=== PATIENT | female | born 1945 | race Caucasian/White ===

== ENCOUNTER 2021-06-21 10:44 | Outpatient (CLI) | payer MEDICARE, OTHER ==
--- NOTE | 2021-06-29 08:02 | Mammography Report ---
UNILATERAL RIGHT DIGITAL SCREENING MAMMOGRAM 3D/2D: 06/21/2021 CLINICAL: Routine screening. Routine screening. Personal history of left breast cancer. Comparison is made to exams dated: 01/07/2019 mammogram, 01/01/2018 mammogram, 12/18/2016 mammogram, 12/12 mammogram, and 12/07/2015 mammogram - [facility]. The tissue of right breas t is predominantly fatty. No significant masses, calcifications, or other findings are seen in the breast. There has been no significant interval change. IMPRESSION: NEGATIVE There is no mammographic evidence of malignancy. A 1 year screening mammogram is recommended. This exam was interpreted at Station ID: [id number]. NOTE: For mammograms, a report in lay terms will be sent to the patient. Approximately 15% of breast malignancies will not be visualized mammographically. In the management of a palpable breast mass, a negative mammogram must not discourage biopsy of a clinically suspicious lesion. Electronically Signed By: Nick Payne acr/penrad:06/28/2021 08:47:09 ACR BI-RADS Category 1: Negative 3341F PARENCHYMAL PATTERN: (F) - The breast(s) demonstrate(s) diffuse fatty replacement. BI-RADS CATEGORY: (1) - 1 RECOMMENDATION: (ANNUAL) - Recommend routine annual screening mammography. [id number] 1 year screening LATERALITY: (B)
== END 2021-06-21 10:45 | disposition home or self-care (01) ==
LOC: DI.S 10:44
DX: Z12.31 Encounter for screening mammogram for malignant neoplasm of breast (principal); Z85.3 Personal history of malignant neoplasm of breast

== ENCOUNTER 2022-07-10 07:00 | Outpatient (CLI) | payer MEDICARE, OTHER ==
--- NOTE | 2022-07-12 12:28 | Mammography Report ---
UNILATERAL RIGHT DIGITAL SCREENING MAMMOGRAM 3D/2D: 07/10/2022 CLINICAL: Routine screening. Personal history of left breast cancer. Family history of breast cancer. Comparison is made to exams dated: 06/21/2021 mammogram - [facility], 01/07/2019 mamm ogram, and 01/01/2018 mammogram - [facility]. There are scattered areas of fibroglandular density in the right breast (category b / 25%-50% glandul ar tissue). No significant masses, calcifications, or other findings are seen in the breast. There has been no significant interval change. IMPRESSION: NEGATIVE There is no mammographic evidence of malignancy. A 1 year screening mammogram is recommended. This exam was interpreted at Station ID: [id number]. NOTE: For mammograms, a report in lay terms will be sent to the patient. Approximately 15% of breast malignancies will not be visualized mammographically. In the management of a palpable breast mass, a negative mammogram must not discourage biopsy of a clinically suspicious lesion. Electronically Signed By: Tian lemus/vega:07/11/2022 11:06:38 letter sent: No_Letter ACR BI-RADS Category 1: Negative 3341F PARENCHYMAL PATTERN: (A) - The breast(s) demonstrate(s) scattered fibroglandular densities. BI-RADS CATEGORY: (1) - 1 RECOMMENDATION: (ANNUAL) - Recommend routine annual screening mammography. [id number] 1 year screening LATERALITY: (B)
== END 2022-07-10 23:59 | disposition home or self-care (01) ==
LOC: DI.S 07:00
DX: Z12.31 Encounter for screening mammogram for malignant neoplasm of breast (principal); Z85.3 Personal history of malignant neoplasm of breast; Z80.3 Family history of malignant neoplasm of breast

== ENCOUNTER 2022-11-02 08:41 | Outpatient (CLI) | payer MEDICARE, OTHER ==
--- NOTE | 2022-11-02 12:58 | XRAY Report ---
PROCEDURE: Chest 2 View X-Ray INDICATIONS: COUGH TECHNIQUE: 2 views of the chest were acquired. COMPARISON: None. FINDINGS: Surgical changes and devices: Surgical clips projecting over the left breast and left axilla. Lungs and pleura: Slight coarsening of the interstitial markings without curly B lines, consolidatio ns, or pleural effusions. Mediastinum: Mediastinal contours appear normal. Heart size is normal. Bones and chest wall: Moderate thoracolumbar scoliosis. No visible fractures or suspicious soft tiss ue lesions. IMPRESSION: 1. Diffusely coarse interstitial markings suggestive of senescent changes, fibrosis, or emphysema. Reviewed by: Amber Bryan MD on 11/02/2022 12:56 PM PDT Approved by: Amber Bryan MD on 11/02/2022 12:56 PM PDT Station ID: [id number]
[2022-11-02 14:43] LABS: BASOPHILS # (AUTO) 0.1 10^3/uL (0.0-0.1); BASOPHILS % (AUTO) 1.7 %; EOSINOPHILS # (AUTO) 0.1 10^3/uL (0.0-0.7); EOSINOPHILS % (AUTO) 2.2 %; HCT - HEMATOCRIT 45.8 % (37.0-47.0); HGB - HEMOGLOBIN 14.2 g/dL (12.0-16.0); LYMPHOCYTES # (AUTO) 1.6 10^3/uL (1.5-3.5); LYMPHOCYTES % (AUTO) 27.5 %; MEAN CORPUSCULAR VOLUME 83.7 fL (81.0-99.0); MEAN PLATELET VOLUME 10.9 fL (7.9-10.8); MONOCYTES # (AUTO) 0.6 10^3/uL (0.0-1.0); MONOCYTES % (AUTO) 9.3 %; NEUTROPHILS # (AUTO) 3.5 10^3/uL (1.5-6.6); NEUTROPHILS % (AUTO) 59.1 %; PLT - PLATELET COUNT 340 10^3/uL (130-450); RED BLOOD COUNT 5.47 10^6/uL (4.20-5.40); RED CELL DISTRIBUTION WIDTH 14.5 % (12.0-15.0); WHITE BLOOD COUNT 5.9 x10^3/uL (4.8-10.8)
[2022-11-02 15:12] LABS: ALBUMIN 3.7 g/dL (3.2-5.5); ALBUMIN/GLOBULIN RATIO 1.2 (1.0-2.2); ALKALINE PHOSPHATASE 93 IU/L (42-121); ALT ALANINE AMINOTRANSFERASE 22 IU/L (10-60); AST ASPARTATE AMINOTRANSFERASE 20 IU/L (10-42); BILIRUBIN,TOTAL 0.6 mg/dL (0.2-1.0); BUN - BLOOD UREA NITROGEN 21 mg/dL (6-20); CALCIUM 9.4 mg/dL (8.5-10.3); CARBON DIOXIDE - CO2 26 mmol/L (21-32); CHLORIDE 105 mmol/L (101-111); CHOL/HDL RATIO 3.6 (<4.4); CHOLESTEROL 239 mg/dL; CREATININE 0.9 mg/dL (0.4-1.0); GFR - MDRD 61 (>89); GLUCOSE 92 mg/dL (70-100); HDL CHOLESTEROL 67 mg/dL; LDL CHOLESTEROL,CALCULATED 146 mg/dL; LDL/HDL RATIO 2.2 (<4.4); POTASSIUM 4.3 mmol/L (3.5-5.0); SODIUM 138 mmol/L (135-145); TOTAL PROTEIN 6.7 g/dL (6.7-8.2); TRIGLYCERIDES 132 mg/dL; VLDL CHOLESTEROL 26 mg/dL
[2022-11-05 09:07] LABS: HCV RNA QUANTITATION HCV Not Detected IU/mL (.)
== END 2022-11-02 08:42 | disposition home or self-care (01) ==
LOC: DI.S 08:41
PROVIDERS: ATTEND Internal Medicine
DX: R91.8 Other nonspecific abnormal finding of lung field (principal); Z80.0 Family history of malignant neoplasm of digestive organs; C50.919 Malignant neoplasm of unspecified site of unspecified female breast; H91.90 Unspecified hearing loss, unspecified ear; Z87.42 Personal history of other diseases of the female genital tract; Z13.6 Encounter for screening for cardiovascular disorders; Z11.59 Encounter for screening for other viral diseases
CPT/HCPCS: 36415; 80053; 80061; 83721; 84443; 85025; 87522

== ENCOUNTER 2022-11-10 12:03 | Outpatient (CLI) | payer MEDICARE, OTHER ==
[2022-11-10] MEDS ORDERED: iohexoL-300 100 ML VIAL ONE (12:39)
--- NOTE | 2022-11-10 14:59 | CT Report ---
PROCEDURE: CHEST W INDICATIONS: ABN XR CONTRAST: 100ml omni 300 TECHNIQUE: After the administration of intravenous contrast, 1 mm axial images were acquired from the pulmonary apices through the posterior costophrenic angles. Axial 5 mm soft tissue kernel reconstructions were performed as well as 8 mm axial MIP and coronal and sagittal 5 mm reformations. For radiation dose reduction, the following was used: automated exposure control, adjustment of mA and/or kV according to patient size. COMPARISON: Radiograph 11/02/2022 FINDINGS: Image quality: Excellent. Lungs and pleura: No consolidation. Mild biapical scarring. No pleural effusions. No pneumothorax. S cattered solid pulmonary nodules. Largest include: -5 mm solid nodule, right lower lobe (series 4, image 128). -4 mm juxtapleural nodule, left lower lobe (series 4, image 126). Mediastinum: Heart size is normal. No pericardial effusion. No large vessel abnormality. No mediastin al adenopathy by size criteria. Small hiatal hernia. Chest wall and lower neck: Thyroid is unremarkable. No axillary or supraclavicular adenopathy by size . Bones: No aggressive osseous abnormality. Convex right rotoscoliosis of the thoracolumbar spine. Upper Abdomen: Fluid attenuating hepatic cyst. IMPRESSION: No findings of fibrosis or emphysema. A few solid pulmonary nodules, largest measuring 5 mm. Consider 12 month follow-up if this patient is at high risk for developing lung cancer, per Fleischner Society guidelines. Reviewed by: David Oliver on 11/10/2022 2:58 PM PDT Approved by: David Oliver on 11/10/2022 2:58 PM PDT Station ID: [id number]
[2022-11-10] MEDS ORDERED: iohexoL-300 100 ML VIAL IVP ONE (15:54)
== END 2022-11-10 12:04 | disposition home or self-care (01) ==
LOC: DI 12:03
PROVIDERS: ATTEND Internal Medicine
DX: R91.8 Other nonspecific abnormal finding of lung field (principal); Z79.899 Other long term (current) drug therapy
CPT/HCPCS: 71260; Q9967

== ENCOUNTER 2023-11-05 08:31 | Outpatient (CLI) | payer MEDICARE, OTHER ==
[2023-11-05 15:20] LABS: BASOPHILS # (AUTO) 0.1 10^3/uL (0.0-0.1); BASOPHILS % (AUTO) 2.3 %; EOSINOPHILS # (AUTO) 0.2 10^3/uL (0.0-0.7); EOSINOPHILS % (AUTO) 3.9 %; HCT - HEMATOCRIT 43.6 % (37.0-47.0); HGB - HEMOGLOBIN 13.5 g/dL (12.0-16.0); LYMPHOCYTES # (AUTO) 1.7 10^3/uL (1.5-3.5); LYMPHOCYTES % (AUTO) 27.3 %; MEAN CORPUSCULAR HEMOGLOBIN 26.2 pg (27.0-31.0); MEAN CORPUSCULAR VOLUME 84.5 fL (81.0-99.0); MEAN PLATELET VOLUME 10.3 fL (7.9-10.8); MONOCYTES # (AUTO) 0.6 10^3/uL (0.0-1.0); MONOCYTES % (AUTO) 9.6 %; NEUTROPHILS # (AUTO) 3.5 10^3/uL (1.5-6.6); NEUTROPHILS % (AUTO) 56.7 %; PLT - PLATELET COUNT 328 10^3/uL (130-450); RED BLOOD COUNT 5.16 10^6/uL (4.20-5.40); RED CELL DISTRIBUTION WIDTH 14.8 % (12.0-15.0); WHITE BLOOD COUNT 6.2 x10^3/uL (4.8-10.8)
[2023-11-05 15:33] LABS: THYROID STIMULATING HORMONE 2.13 uIU/mL (0.34-5.60)
[2023-11-05 15:35] LABS: ALBUMIN 4.2 g/dL (3.2-5.5); ALBUMIN/GLOBULIN RATIO 1.6 (1.0-2.2); ALKALINE PHOSPHATASE 90 IU/L (42-121); ALT ALANINE AMINOTRANSFERASE 21 IU/L (10-60); AST ASPARTATE AMINOTRANSFERASE 21 IU/L (10-42); BILIRUBIN,TOTAL 0.4 mg/dL (0.2-1.0); BUN - BLOOD UREA NITROGEN 24 mg/dL (6-20); CALCIUM 9.9 mg/dL (8.5-10.3); CARBON DIOXIDE - CO2 30 mmol/L (21-32); CHLORIDE 107 mmol/L (101-111); CHOLESTEROL 256 mg/dL; CREATININE 0.9 mg/dL (0.6-1.3); GFR - MDRD 61 (>89); GLUCOSE 89 mg/dL (74-104); HDL CHOLESTEROL 64 mg/dL; LDL CHOLESTEROL,CALCULATED 151 mg/dL; LDL/HDL RATIO 2.4 (<4.4); POTASSIUM 4.1 mmol/L (3.5-4.5); SODIUM 142 mmol/L (135-145); TOTAL PROTEIN 6.9 g/dL (6.4-8.9); TRIGLYCERIDES 206 mg/dL (48-352); VLDL CHOLESTEROL 41 mg/dL
== END 2023-11-05 08:32 | disposition home or self-care (01) ==
LOC: LAB.S 08:31
PROVIDERS: ATTEND Internal Medicine
DX: Z00.00 Encounter for general adult medical examination without abnormal findings (principal); F41.9 Anxiety disorder, unspecified; F32.A Depression, unspecified; L30.9 Dermatitis, unspecified; Z80.0 Family history of malignant neoplasm of digestive organs; C50.919 Malignant neoplasm of unspecified site of unspecified female breast; Z86.010 Personal history of colon polyps; N30.10 Interstitial cystitis (chronic) without hematuria; Z79.899 Other long term (current) drug therapy; L71.9 Rosacea, unspecified
CPT/HCPCS: 36415; 80053; 80061; 83721; 84443; 85025

== ENCOUNTER 2023-11-23 13:09 | Outpatient (CLI) | payer MEDICARE, OTHER ==
--- NOTE | 2023-11-26 10:37 | Ultrasound Report ---
LIMITED ULTRASOUND OF RIGHT BREAST AND AXILLA: 11/23/2023 CLINICAL: Palpable right breast lump. Comparison is made to exams dated: 07/10/2022 mammogram, 06/21/2021 mammogram - [facility], 01/07/2019 mammogram - [facility], and 11/23/2023 mammogram - [facility]. Color flow ultrasound of the right breast retroareolar and axilla regions was performed. Valdez scale images of the real-time examination were reviewed. There is a 0.9 cm x 0.9 cm x 0.9 cm irregular mass with an indistinct margin in the right breast cent ral to the nipple middle depth. This irregular mass is hypoechoic with an echogenic boundary. This correlates as palpated and with mammography findings. Color flow imaging demonstrates that there is no increase in vascularity. No significant abnormalities were seen sonographically in the right axilla. IMPRESSION: HIGHLY SUGGESTIVE OF MALIGNANCY The 0.9 cm x 0.9 cm x 0.9 cm irregular mass in the right breast is highly suggestive of malignancy. An ultrasound guided biopsy is recommended. Please note that the mass appears larger on mammography than on ultrasound, possibly related to surrounding desmoplastic reaction. Consider pre-treatment MRI to evaluate for extent of disease. No significant abnormalities were seen sonographically in the right axilla. This exam was interpreted at Station ID: [id number]. Electronically Signed By: Yuan Lofton M.D. ar/:11/23/2023 21:34:15 Ultrasound BI-RADS: 5 Highly suggestive of malignancy BI-RADS CATEGORY: (5) - 5 Biopsy [id number] Immediate follow-up LATERALITY: (R)
--- NOTE | 2023-11-26 10:37 | Mammography Report ---
UNILATERAL RIGHT DIGITAL DIAGNOSTIC MAMMOGRAM 3D/2D: 11/23/2023 CLINICAL: Palpable right breast lump by physician. Comparison is made to exams dated: 07/10/2022 mammogram, 06/21/2021 mammogram - [facility], and 01/07/2019 mammogram - [facility]. There are scattered areas of fibroglandular density in the right breast (category b / 25%-50% glandul ar tissue). There is a 2.1 cm irregular high density mass with a spiculated margin in the right breast central to the nipple anterior depth. This correlates as palpated. No other significant masses or calcifications are seen in the breast. IMPRESSION: INCOMPLETE: NEEDS ADDITIONAL IMAGING EVALUATION The 2.1 cm irregular high density mass in the right breast is indeterminate. An ultrasound is recomm ended. This exam was interpreted at Station ID: [id number]. NOTE: For mammograms, a report in lay terms will be sent to the patient. Approximately 15% of breast malignancies will not be visualized mammographically. In the management of a palpable breast mass, a negative mammogram must not discourage biopsy of a clinically suspicious lesion. Electronically Signed By: Yuan Lofton M.D. ar/:11/23/2023 21:31:38 ACR BI-RADS Category 0: Incomplete 3340F PARENCHYMAL PATTERN: (A) - The breast(s) demonstrate(s) scattered fibroglandular densities. BI-RADS CATEGORY: (0) - 0 Ultrasound [id number] Immediate follow-up LATERALITY: (R)
== END 2023-11-23 13:10 | disposition home or self-care (01) ==
LOC: DI 13:09
PROVIDERS: ATTEND Internal Medicine
DX: N63.41 Unspecified lump in right breast, subareolar (principal); R92.321 Mammographic fibroglandular density, right breast

== ENCOUNTER 2023-12-11 09:34 | Outpatient (CLI) | payer MEDICARE, OTHER ==
[~2023-12-11 09:34] MED LIST: LIDOCAINE 1%-EPI 1:100000 20 ML MDV ONE; LIDOCAINE-MPF 1% 5 ML VIAL ONE
[2023-12-11] MEDS: LIDOCAINE-MPF 1% 5 ML VIAL TD ONE (11:12)
[2023-12-11] MEDS: LIDOCAINE 1%-EPI 1:100000 20 ML MDV SUBQ ONE (11:13)
--- NOTE | 2023-12-19 08:08 | Mammography Report ---
UNILATERAL RIGHT DIGITAL DIAGNOSTIC MAMMOGRAM - RIGHT BREAST POST-PROCEDURE IMAGING FOR MARKER PLACEM ENT: 12/11/2023 CLINICAL: Post right breast ultrasound biopsy clip placement imaging. Comparison is made to exams dated: 11/23/2023 ultrasound, 11/23/2023 mammogram, 07/10/2022 mammogram, mammogram - [facility], and 01/07/2019 mammogram - [facility]. There are scattered areas of fibroglandular density in the right breast (category b / 25%-50% glandul ar tissue). Post biopsy mammogram demonstrates hydromark biopsy clip within the mass IMPRESSION: POST PROCEDURE MAMMOGRAM FOR MARKER PLACEMENT Post biopsy mammogram demonstrates hydromark biopsy clip within the mass. Please see separately dicta óscar ultrasound guided biopsy report for additional details and pathology. This exam was interpreted at Station ID: [id number]. NOTE: For mammograms, a report in lay terms will be sent to the patient. Approximately 15% of breast malignancies will not be visualized mammographically. In the management of a palpable breast mass, a negative mammogram must not discourage biopsy of a clinically suspicious lesion. Electronically Signed By: Kelsey Lehman M.D., Ph.D. eb/:12/18/2023 12:59:18 ACR BI-RADS Category Post-procedure mammogram for marker placement PARENCHYMAL PATTERN: (A) - The breast(s) demonstrate(s) scattered fibroglandular densities. BI-RADS CATEGORY: () - Unspecified - other recall n/a LATERALITY: (B)
--- NOTE | 2023-12-21 10:58 | Ultrasound Report ---
ULTRASOUND GUIDED BIOPSY RIGHT BREAST WITH MARKING DEVICE INSERTED AND POST MAMMOGRAPHIC IMAGIN11/13 CLINICAL: Right breast mass. PATIENT CONSENT: Risks (minor bleeding, infection, vasovagal reaction and repeat procedure), benefits and alternatives were explained to the patient and written informed consent was obtained. Correlation is made to exams dated: 11/23/2023 ultrasound and 11/23/2023 mammogram - [facility]. An ultrasound guided biopsy using real-time ultrasound was performed for the mass located in the righ t breast retroareolar region. The skin was prepped in the usual manner. Local anesthetic was admini stered to the access site. The abnormality was approached from the lateral aspect. A 14 gauge biops y needle was placed adjacent to the abnormality through an introducer device under ultrasound guidanc e. Once the needle was documented to be in the correct location, eight specimens were obtained using the Microstimquee biopsy device. The patient received additional local anesthetic during the procedure. A hydromark clip was inserted into the biopsy cavity. A sterile dressing was applied to the access s ite. Post procedure mammographic imaging demonstrates the biopsy clip at the targeted area. The spe cimens were sent to the laboratory for pathological analysis. Biopsy was performed by Dr. Cooley. IMPRESSION: ULTRASOUND GUIDED BIOPSY MALIGNANT Successful ultrasound guided biopsy of the right breast retroareolar mass performed by Dr. Cooley. Ultrasound guided biopsy of the mass in the right breast central to the nipple in the retroareolar re gion was successful. Pathology indicates malignant invasive lobular carcinoma ([place]). Pathology resul ts are concordant with imaging findings. A surgical/oncologic consultation is recommended. This exam was interpreted at Station ID: [id number]. Kelsey Lehman M.D., Ph.D. James Barton M.D. ,aty/:12/20/2023 09:10:20 BI-RADS CATEGORY: () - Unspecified - other recall n/a LATERALITY: (B)
== END 2023-12-11 09:35 | disposition home or self-care (01) ==
LOC: DI 09:34
PROVIDERS: ATTEND Internal Medicine
DX: C50.111 Malignant neoplasm of central portion of right female breast (principal); Z17.0 Estrogen receptor positive status [ER+]; R92.321 Mammographic fibroglandular density, right breast
CPT/HCPCS: 19083